=== PATIENT | male | born 1980 | race Caucasian/White ===

== ENCOUNTER 2016-08-13 10:53 | Day surgery (SDC) | payer OTHER ==
[~2016-08-13] VITALS: Ht 175.3 cm; Wt 65.2 kg
[~2016-08-13 10:53] MED LIST: MEROPENEM 1 GM/100 ML (PMX) 100 ML IVPB SCH
[2016-08-13 11:40] VITALS: Ht 175.3 cm; Wt 65.2 kg
[2016-08-13] MEDS ORDERED: PANT20TA2 PO (11:49)
[2016-08-13] MEDS ORDERED: PROPOFOL 20 ML ONE ×2 (11:52→12:10)
[2016-08-13 12:02] VITALS: BP 119/63; PULSE 61; RESP 21
[2016-08-13] MEDS ORDERED: METOCLOPRAMIDE 10 MG INJ ONE (12:09)
[2016-08-13] MEDS ORDERED: FAMOTIDINE 20 MG INJ ONE (12:09)
[2016-08-13] MEDS ORDERED: ONDANSETRON 4 MG INJ ONE (12:10)
[2016-08-13 12:47] VITALS: BP 105/58; PULSE 54; RESP 12
--- NOTE | 2016-09-09 04:38 | GILP ---
DATE OF PROCEDURE: 08/30/2016 PREOPERATIVE DIAGNOSIS: Abdominal pain. POSTOPERATIVE DIAGNOSIS: 1. Gastritis and gastric mucosal biopsies were taken for Helicobacter pylori test. 2. Small bowel biopsies were taken to rule out celiac disease. PROCEDURE PERFORMED: Esophagogastroduodenoscopy and biopsy. SUGEON: Benny Dacosta MD. INDICATION FOR PROCEDURE: Mr. Mio Esteban is a 36-year-old male patient who had upper abdominal pain not responding to therapy. The patient thus presents for endoscopy examination for further evaluation. The procedure and possible complications were well explained to the patient. He understood and consented to the procedure. DESCRIPTION OF PROCEDURE: The gastroscope was carefully introduced into the esophagus and under direct vision it was advanced into the stomach and through the pylorus into the duodenal bulb and descending duodenum. Findings esophagus, the mucosa was normal. Stomach, the patient had gastritis. Gastric mucosal biopsies were taken for Helicobacter pylori test. The duodenum was normal. Small bowel biopsies were taken to rule out celiac disease. The patient tolerated the procedure very well. There were no complications the procedure. At the end of the procedure he was awake with stable vital signs and he was discharged home in the care of his family. IMPRESSION: Please see postoperative diagnoses. PLAN: 1. Pantoprazole 20 mg p.o. q.a.m. 2. Bentyl 10 mg p.o. b.i.d. p.r.n. for pain. 3. Await histopathology reports. Dictated By: MD RIYA Stein/stephanie/kim /Document#: [id number] CC: Benny Dacosta MD;*[facility]*
== END 2016-08-13 15:55 | disposition home or self-care (01) ==
LOC: GIL 10:53
PROVIDERS: ATTEND Internal Medicine Gastroenterology
DX: K29.70 Gastritis, unspecified, without bleeding (principal)
CPT/HCPCS: 43239; 87081; 88305; J2405; J2765; Z7610

== ENCOUNTER 2017-03-11 10:08 | Day surgery (SDC) | END 2017-03-11 14:44 | disposition home or self-care (01) ==

== ENCOUNTER 2017-09-05 08:28 | Day surgery (SDC) | END 2017-09-05 12:41 | disposition home or self-care (01) ==